=== PATIENT | male | born 1955 | race Caucasian/White ===

== ENCOUNTER 2020-12-24 22:00 | Emergency (ER) | payer MEDICARE, MEDICAID ==
[~2020-12-24] VITALS: Ht 180.3 cm; Wt 95.3 kg
--- NOTE | ~2020-12-24 | EMS ---
[address] [address] EMS Patient Care Report Name: RALPH PRESTON [id number] Admission: 12/24/20 Attend Phys: Discharge: 12/25/20 Date of : 57 Report #: [id number] THIS REPORT FOR: //name// Report Transmitted: 12/26/2020 07:35 EMS Care Summary [employer] [facility] Incident [id number] @ 12/24/2020 21:15 Incident Location [address] [place] [address] Patient RALPH PRESTON Male, 65 Years 1955 Patient Address [address] [place] [address] Patient History Dementia,Seizures,Atrial Fibrillation, Patient Allergies Penicillin allergy, Patient Medications Atorvastatin, Sertraline, Chief Complaint Fall with possible nose fracture Disposition Transported No Lights/[place] [facility] Reason Falls Transported To [facility] Narrative Upon arrival the patient was located lying prone on the floor. The patient had a towel under his head with blood coming from his nose. The patient denied neck or back pain at the time and a rapid trauma assessment of the spine showed no signs of injurie. The patient was able to sit up and was then placed in a [address] [address] EMS Patient Care Report Name: RALPH PRESTON Room: [facility]#: [id number] Admission: 12/24/20 Attend Phys: Discharge: 12/25/20 Date of : 57 Report #: [id number] chair. The patient was found alert with a GCS of 15. The patient's advised that was normal for him. The patient's advised they heard the fall but didn't witness it and that the patient was a fall risk and was not supposed to be up on his own without assistance. The patient advised he was trying to go get something but he couldn't remember what when he tripped on the chair striking it with his face. The patient denied a LOC and the family stated they came into the room right after the fall and he was awake. The patient's nose had blood under it but the bleeding was controlled at this time. The patient's nose was deformed with a deviation to the right and swelling on his right cheek. The patient was also complaining of right knee pain stating he may have hit it on the floor. The patient rated his pain 7/10 but upon palpation the patient had tears in his eyes from the pain in his nose and his right cheek. The patient's requested transport to [facility] for evaluation and CT to check for bleed. The patient was able to stand and pivot to the EMS cot. During transport the patient began complaining of mild neck pain as well. Initial Vitals @21:31P: 96,R: 18,BP: 153/90,Pain: 7/10,GCS: 14,Glucose: 121,SpO2: 94,Revised Trauma: 12,AK Suspected: false @21:41P: 99,R: 18,BP: 151/92,Pain: 4/10,GCS: 14,SpO2: 95,Revised Trauma: 12, @21:51P: 92,R: 18,BP: 158/103,Pain: 4/10,GCS: 14,SpO2: 94,Revised Trauma: 12, Impression Injury of Nose Procedures @21:31Saline Lock 10cc (20 ga) Site: Forearm-LeftResponse: UnchangedSucceeded@21:36Ondansetron - 4 Milligrams (mg) - Intravenous (IV)Response: Unchanged@21:37Fentanyl - 50 Micrograms (mcg) - Intravenous (IV)Response: Improved@21:21ALS AssessmentResponse: UnchangedSucceeded Timeline 21:15,Call Received 21:15,Dispatched 21:17,En Route 21:18,At Patient 21:18,Initial Responder On Scene 21:18,On Scene 21:21,ALS Assessment,Response: UnchangedSucceeded, 21:31,BP: 153/90 M,PULSE: 96,RR: 18 R,SPO2: 94 Ox,ETCO2: ,B,PAIN: 7,GCS: 14, 21:31,Saline Lock 10cc 20 ga Site: Forearm-Left,Response: UnchangedSucceeded, 21:33,Depart Scene 21:36,Ondansetron - 4 Milligrams (mg) - Intravenous (IV),Response: Unchanged 21:37,Fentanyl - 50 Micrograms (mcg) - Intravenous (IV),Response: [place] [address] EMS Patient Care Report Name: RALPH PRESTON Room: [facility] Shanel#: [id number] Admission: 12/24/20 Attend Phys: Discharge: 12/25/20 Date of : 57 Report #: [id number] 21:41,BP: 151/92 M,PULSE: 99,RR: 18 R,SPO2: 95 Ox,ETCO2: ,BG: ,PAIN: 4,GCS: 14, 21:51,BP: 158/103 M,PULSE: 92,RR: 18 R,SPO2: 94 Ox,ETCO2: ,BG: ,PAIN: 4,GCS: 14, 21:55,At Destination 21:55,Transfer Patient 22:26,Call Closed 22:26,In District Disclaimer v1.1 Copyright 2020 [employer] This EMS Care Summary contains data elements from the applicable legal record (which may be displayed differently). It is designed to provide pertinent information for the following purposes: continuity of care, clinical quality, and state data reporting. The complete legal record is available to ED staff and administrators of the receiving hospital in [employer]'s Patient Tracker. All data is provided "as is."
[2020-12-24] MEDS ORDERED: ZETIA10 MG PO (22:08)
[2020-12-24] MEDS ORDERED: FENOFIBRATE150 MG PO (22:09)
[2020-12-24] MEDS ORDERED: LIPITOR80 MG PO (22:09)
[2020-12-24] MEDS ORDERED: LOPRESSOR50 MG PO (22:10)
[2020-12-24] MEDS ORDERED: VIMPAT200 MG PO (22:10)
[2020-12-24] MEDS ORDERED: ZOLOFT 50 MG TA50 MG PO (22:10)
[2020-12-24] MEDS ORDERED: HYDRALAZINE 2525 M1 PO (22:11)
[2020-12-25] MEDS ORDERED: KEFLEX250 MG PO (01:30)
[2020-12-25 01:39] VITALS: BP 173/102
== END 2020-12-25 01:40 | disposition short-term general hospital (02) ==
LOC: M.ERS 22:00
DX: S02.2XXA Fracture of nasal bones, initial encounter for closed fracture (principal); E11.9 Type 2 diabetes mellitus without complications; Z88.0 Allergy status to penicillin; Z88.8 Allergy status to other drugs, medicaments and biological substances; Z79.899 Other long term (current) drug therapy; W18.30XA Fall on same level, unspecified, initial encounter; Y93.89 Activity, other specified; Y92.89 Other specified places as the place of occurrence of the external cause; Y99.8 Other external cause status